=== PATIENT | male | born 1950 | race Caucasian/White ===

== ENCOUNTER → 2025-03-03 | Outpatient (CLI) | payer MEDICARE, SELFPAY ==
--- NOTE | 2025-03-03 10:00 | US_ITS ---
PROCEDURE: ABD LIMITED W/ ELASTOGRAPHY, 03/03/2025 REASON FOR EXAM: CIRROHSIS OF LIVER COMPARISON: None TECHNIQUE: Grayscale and color Doppler imaging of the right upper quadrant was performed. Elastography was performed for non-invasive assessment of liver tissue stiffness utilizing a [employer] S-shear wave imaging unit. FINDINGS: Liver: Grossly unremarkable echotexture. 23.5 cm in length. Ill-defined echogenic lesion in the RIGHT lobe near the diaphragm measures 14 x 12 x 14 mm. Gallbladder: Cholecystectomy. Biliary tree: Dilated, CBD measures 16 mm. Pancreas: Partially obscured by shadowing bowel gas, grossly unremarkable as visualized. Right kidney: Echogenic nonshadowing possible nonobstructing intrarenal calculus versus prominent renal sinus fat measures 5 x 5 x 2 mm.. Cyst measures 4.1 x 3.8 x 3.1 cm. 12.3 cm in length. Other: 3. Hepatic elastography: Number of measurements: 15 measurements across 3 regions, 5 measurements per region. US probe: CA1-7A. EQI median: 10.5 kPa EQI median velocity: 1.83 m/s IQR/Med: 17.0-21.4% (kPa) and 8.2-10.8% (m/s). If the IQR/Med is IQR/median >30% (for kPa) or >15% in m/s, the variance in the measurements is a large and the accuracy of the measurement may be in question. US/ABD Limited w/ Elastography IMPRESSION: 1. Hepatomegaly. Grossly unremarkable hepatic echotexture. Correlate for clini aileen and laboratory evidence of chronic liver disease. 2. Liver stiffness is 10.5 kPa. Per the below 2020 SRU criteria, this is sugges tive of compensated advanced chronic liver disease but requires further testing for confirmation. 3. 14 mm indeterminate hepatic lesion which could reflect a hemangioma however this is not definite. Recommend multiphase hepatic protocol MRI or less optimally CT with and without contrast. Compariso n with any available prior imaging would be helpful. 4. Cholecystectomy with biliary dilatation which could be related to post alis cystectomy effect. In the absence of priors, correlate with serum bilirubin and consider clinical follow-up as indicated. 5. Additional description as above. Assessment is per the Update to the SRU Liver Elastography Consensus Statement (2020) Note that the above assessment of liver fibrosis is vendor-neutral and intended for use in fibrosis related to viral etiologies and non-alcoholic fatty-liver disease (NAFLD); in causes other than viral hepat itis and NAFLD, the cutoff values are currently not well established. In some patients with NAFLD, the cutoff values for cACLD may be lower (7-9 kPa). Note also that in the setting of elevated LFTs, nonfasting or vascular congestion, the stage of lifer fibrosis may be overestimated. Previous SRU reference values: <1.37 m/s (5.7kPa): No to mild fibrosis 1.37 m/s - 2.2 m/s: Moderate to severe fibrosis >2.2 m/s (15kPa): Significant fibrosis / cirrhosis Reading Location: [id number]
== END | disposition home or self-care (01) ==
LOC: US 09:58
PROVIDERS: PCP Internal Medicine; Referring Provider Internal Medicine; Visit Provider Internal Medicine
DX: K74.60 Unspecified cirrhosis of liver (principal)
CPT/HCPCS: 76705; 76981